=== PATIENT | female | born 2000 | race Caucasian/White ===

== ENCOUNTER 2020-05-30 07:58 | Observation (INO) ==
--- NOTE | 2020-05-09 15:34 | PAT Medication Instructions ---
Medication Instructions Date of Service May 09, 2020 Home Medications etonogestrel [Nexplanon] 68 mg SUBDERMAL CONT Lactobacillus acidophilus [Florajen] 460 mg PO QAM diclofenac sodium 75 mg PO BID levothyroxine 75 mcg PO QAM Continue as directed etonogestrel [Nexplanon] 68 mg SUBDERMAL CONT ASK your surgeon for instructions diclofenac sodium 75 mg PO BID DO NOT take the morning of surgery Lactobacillus acidophilus [Florajen] 460 mg PO QAM Take morning of surgery With a small sip of water, OTHERWISE NOTHING TO EAT OR DRINK AFTER MIDNIGHT: levothyroxine 75 mcg PO QAM Other Notes If you have any questions please call us at [phone] or [phone] or [phone] or [phone]
--- NOTE | 2020-05-21 10:40 | PAT Medication Instructions ---
Medication Instructions Date of Service May 21, 2020 Home Medications etonogestrel [Nexplanon] 68 mg SUBDERMAL CONT Lactobacillus acidophilus [Florajen] 460 mg PO QAM diclofenac sodium 75 mg PO BID levothyroxine 75 mcg PO QAM Continue as directed etonogestrel [Nexplanon] 68 mg SUBDERMAL CONT ASK your surgeon for instructions diclofenac sodium 75 mg PO BID DO NOT take the morning of surgery Lactobacillus acidophilus [Florajen] 460 mg PO QAM Take morning of surgery With a small sip of water, OTHERWISE NOTHING TO EAT OR DRINK AFTER MIDNIGHT: levothyroxine 75 mcg PO QAM Other Notes If you have any questions please call us at [phone] or [phone] or [phone] or [phone]
--- NOTE | 2020-05-22 14:11 | Anesthesiology Consultation ---
Date of Service May 22, 2020 Assessment & Plan (1) Encounter for pre-operative examination: - Per assessment on 05/22: Travel screen negative. No known COVID-19 positive contacts or current COVID-19 related symptoms. Surgeon arranging preop COVID testing. Awaiting results. - Check test AM DOS Chart Review Chart Review: Acceptable Risk for Surgery and Patient seen in Pre Admission Testing Teaching & Discussion Pre-Anesthesia Teaching/Discussion Notes: Instructed NPO after midnight before surgery,except medications with 15 cc of water. Medication instructions provided according to the PAT guidelines. History Surgery Operation Date: 05/30/20 09:10 Proposed Procedures p Robotic Laparoscopic Right and/or Left Ovarian Cystectomy - Kate Garrido, Height/Weight Height: 5 ft 9 in Weight: 65.3 kg Allergies Allergy/AdvReac Type Severity Reaction Status Date / Time No Known Allergies Allergy Verified 05/22/20 12:50 Medications Home Medications Medication Instructions Recorded Confirmed Last Taken etonogestrel [Nexplanon] 68 mg SUBDERMAL CONT 05/11/19 05/22/20 Unknown Lactobacillus acidophilus 460 mg PO QAM 04/28/20 05/22/20 Unknown [Florajen] diclofenac sodium 75 mg PO BID 04/28/20 05/22/20 Unknown levothyroxine 75 mcg PO QAM 04/28/20 05/22/20 Unknown Past Medical History Medical History Cold intolerance Euthyroid, hypothyroidism unlikely but conceivable per [facility] endocrinology > rec'd trial of levothyroxine to see if improvement in cold intolerance complaint > pt states she has seen an improvement in symptoms so she has been continuing levothyroxine Dermoid cyst Hypothyroidism IBS (irritable bowel syndrome) mild Ruptured ovarian cyst Exercise / Class Metabolic Activity II 4-5 Yardwork/Stairs/Walk up hill Past Family History Family History Father Diabetes Colorectal cancer Denies family history of Ovarian cancer Prostate cancer Myocardial infarction Breast cancer Past Surgical History Surgical History History of tooth extraction Past Anesthesia History No Hx of Anesthesia Complications and No Family Hx of Anesthesia Complications History of PONV No Hx of PONV and Hx of Motion Sickness (car rides) Social History Smoking Status: Never smoker Do You Dip or Chew Tobacco: No Hx Alcohol Use: Yes Alcohol type: beer, wine and hard liquor alcohol intake frequency: holidays/special occasions only Hx Substance Use: No substance use type: does not use Review of Systems Patient denies chest pain, shortness of breath, dyspnea on exertion, fever, chills, cough, wheezing, palpitations. Physical Exam Vital Signs VITALS BP 121/79 P 94 TEMP 98.8 SP02 97%RA RESP 16 PHYSICAL Full neck and c-spine range of motion. Full TMJ range of motion. TMD 3 finger breaths Mallampati Score 1 Dentition: missing molars Lungs: clear throughout to auscultation Cardiac: regular rate and rhythm, no murmurs noted Spine: normal Extremities: no edema Testing Laboratory Results 05/22/20 14:35 Urine Color Yellow 05/22/20 14:35 Urine Appearance Clear (Clear) 05/22/20 14:35 Urine pH 5.5 (4.5-7.5) 05/22/20 14:35 Ur Specific [place] 1.023 (1.000-1.030) 05/22/20 14:35 Urine Protein Negative (Negative) 05/22/20 14:35 Urine Glucose (UA) Negative (Negative) 05/22/20 14:35 Urine Ketones Trace (Negative) H 05/22/20 14:35 Urine Nitrite Negative (Negative) 05/22/20 14:35 Ur Leukocyte Esterase Negative (Negative) 05/22/20 14:35 02/13/20 TSH 1.160 (wnl) FREE T4 0.80 (wnl) 12/04/19 SODIUM 139 POTASSIUM 4.1 CHLORIDE 103 CO2 23 BUN 17 CREATININE 0.78 GLUCOSE 92
[2020-05-22 15:07] LABS: Basophils # (auto) 0.03 K/uL (0-0.2); Basophils % (auto) 0.4 %; Eosinophils # (auto) 0.07 K/uL (0-0.5); Hematocrit (blood only) 38.4 % (37-47); Hemoglobin 13.3 g/dL (12.0-16.0); Immature Granulocytes # (auto) 0.01 K/uL (0.00-0.02); Immature Granulocytes % (auto) 0.1 %; Lymphocytes # (auto) 2.46 K/uL (1.2-3.4); Lymphocytes % (auto) 34.9 %; Mean Corpuscular Hemoglobin 30.8 pg (25-34); Mean Corpuscular Hgb Conc 34.6 g/dL (32-36); Mean Corpuscular Volume 88.9 fL (80-100); Mean Platelet Volume 10.5 fL (7.4-10.4); Monocytes # (auto) 0.49 K/uL (0.11-0.59); Neutrophils # (auto) 3.98 K/uL (1.4-6.5); Neutrophils % (auto) 56.6 %; Platelet Count 276 K/uL (130-400); RDW Standard Deviation 39.1 fL (36.4-46.3); Red Blood Count 4.32 M/uL (4.2-5.4); White Blood Count 7.04 K/uL (4.8-10.8)
[2020-05-22 15:15] LABS: Appearance Urine Clear (Clear); Bilirubin Urine Negative (Negative); Blood Urine Negative (Negative); Color Urine Yellow; Glucose Urine UA Negative (Negative); Ketones Urine Trace (Negative); Leukocyte Esterase Urine Negative (Negative); Nitrite Urine Negative (Negative); Protein Urine Negative (Negative); Specific Gravity Urine 1.023 (1.000-1.030); Urobilinogen Urine Negative (Negative); pH Urine 5.5 (4.5-7.5)
[2020-05-22 15:49] LABS: Pregnancy Test, Serum Negative (Negative)
[2020-05-26 14:13] LABS: AFP Tumor Marker Serum 1.2 ng/mL
[~2020-05-30 07:58] MED LIST: LR 15ML/HR IV SCH
[2020-05-30] MEDS ORDERED: ROCURONIUM BROMIDE 10 MG/ML 5 ML VIAL IV ONE (08:31)
[2020-05-30] MEDS ORDERED: PROPOFOL IV EMULSION 10 MG/ML 20 ML VIAL IV ONE (08:31)
[2020-05-30] MEDS ORDERED: fentaNYL citrate 100 MCG/2 ML VIAL ONE ×2 (08:31→10:23)
[2020-05-30] MEDS ORDERED: LIDOCAINE HCL 2% 2 ML VIAL/AMP(20MG/ML) INFIL ONE (08:31)
[2020-05-30] MEDS ORDERED: ONDANSETRON INJ 2 MG/ML 2 ML VIAL ONE (08:31)
[2020-05-30] MEDS ORDERED: MIDAZOLAM HCL 1 MG/ML 2ML VIAL ONE (08:31)
--- NOTE | 2020-05-30 09:00 | History & Physical Bridge Note ---
Date of Service May 30, 2020 History & Physical Bridge Note I have examined the patient, reviewed the History & Physical and in the interval since the performance of the History & Physical I have noted the following changes of clinical significance: no changes noted
[2020-05-30] MEDS ORDERED: BUPIVACAINE 0.5 % 5 MG/1 ML MPF 30ML VIAL ONE (09:17)
[2020-05-30] MEDS ORDERED: METOCLOPRAMIDE HCL INJ 5 MG/ML 2 ML VIAL IV PRN (09:25)
[2020-05-30] MEDS ORDERED: DEXAMETHASONE SOD INJ 4 MG/ML VIAL IV PRN (09:25)
[2020-05-30] MEDS ORDERED: HYDROmorphone INJ 2 MG/ML SYR/VIAL IV PRN (09:25)
[2020-05-30] MEDS ORDERED: ONDANSETRON INJ 2 MG/ML 2 ML VIAL IV PRN ×2 (09:25→11:31)
[2020-05-30] MEDS ORDERED: ATROPINE SULFATE 0.1 MG/ML 10ML SYR IV PRN (09:25)
[2020-05-30] MEDS ORDERED: ePHEDrine sulfate 50 MG/ML AMP IV PRN (09:25)
[2020-05-30] MEDS ORDERED: PROMETHAZINE HCL 12.5 MG in SODIUM CHLORIDE 0.9% 50 ML IV PRN (09:25)
[2020-05-30] MEDS ORDERED: DEXAMETHASONE SOD INJ 4 MG/ML VIAL ONE (09:52)
[2020-05-30] MEDS ORDERED: GLYCOPYRROLATE 0.2 MG/ML VIAL ONE (10:50)
[2020-05-30] MEDS ORDERED: NEOSTIGMINE METHYLSULFATE 5 MG/5 ML SYR ONE (10:50)
--- NOTE | 2020-05-30 11:25 | Operative Report ---
[facility] Post Operative Report Pre & Post Diagnosis Operation Date: 05/30/20 09:20 Pre-Op Diagnosis: Complex Ovarian Cyst Post-Op Diagnosis: Complex Ovarian Cyst - Dermoid I identified the patient and participated in the time-out.: Yes Procedure Operation Date: 05/30/20 09:20 Actual Procedures p Robotic Left Laparoscopic Ovarian Cystectomy, Pelvic Irrigation(Left) - Kate Garrido DO Surgeon Kate Garrido DO Brain Wave Technician Marian Mcallister MD Estimated Blood Loss 10 Findings Consistent with Post-Op Diagnosis Enlarged left ovary, dermoid cyst with multiple tissue types - fat, fluid, hair. Specimens left ovarian cyst Drains ballesteros, clear yellow, removed at end of case Anesthesia Type General Complications none Disposition Accompanied Patient To Recovery: No Disposition: Recovery Room Indications 19yo G0 with left ovarian dermoid causing pain. Description of Procedure The patient was seen in the preoperative holding area, all risks benefits and alternatives to surgery reviewed. She elected to proceed with the case. She had previously signed informed consent under no no duress in the office. All questions were answered. Left side was marked. Patient was taken to the operating room, general anesthesia was administered. She was prepared and draped in the usual sterile fashion in the dorsal lithotomy position with feet in yellowfin stirrups. Timeout was confirmed. A Ballesteros catheter was placed in the bladder. A weighted speculum was placed in the vagina, the cervix was visualized and its anterior lip was grasped with a single-tooth tenaculum. An acorn uterine manipulator was inserted through the cervix. Gloves were changed and attention was then turned to the abdomen. The supraumbilical incision was made with a scalpel, and using open Hair technique the fascia was incised and the peritoneal cavity was entered. The umbilical trocar was placed, and CO2 gas was used to insufflate the abdomen after confirmation of intraperitoneal entry. Bilateral trochars were placed under direct visualization. The robot was docked. An incision was made with monopolar alec into the ovarian cyst, with the inner cyst wall visualized. This was gently bluntly dissected from the inner wall of the ovary. During this process, the cyst was punctured and there was spillage of cyst contents into the pelvis. This was immediately irrigated. The cyst wall was carefully dissected from the ovary bluntly. The ovarian bed was evaluated and found to be hemostatic. The pelvis was irrigated multiple times. The robot was undocked. The specimen was placed in an Endo Catch bag and removed through the umbilical trocar incision. The pelvis and abdomen were then irrigated again, multiple times, in an effort to clear the pelvis of all remaining cyst material. Excellent hemostasis was observed. The trochars were removed, and the supraumbilical incision fascia was reapproximated using 0 Vicryl in a running stitch. All skin incisions were then reapproximated with 4-0 Vicryl in a running subcuticular stitch. 0.25% Marcaine was used for anesthetic at the trocar sites. The abdomen was cleaned and Dermabond was applied. All instruments were removed from the vagina, as well as the Ballesteros catheter. Excellent hemostasis was observed. The patient tolerated the procedure well, and was taken to recovery area in stable and good condition. I attest to the content of the Intraoperative Record and any orders documented therein. Any exceptions are noted below.
[2020-05-30] MEDS ORDERED: KETOROLAC 30 MG/ML VIAL ONE (11:27)
[2020-05-30] MEDS ORDERED: oxyCODONE/ACETAMINOPHEN 5mg/325mg TAB PO PRN (11:31)
[2020-05-30] MEDS ORDERED: NALOXONE HCL 0.4 MG/1 ML VIAL/CARP ONE (11:36)
--- NOTE | 2020-05-30 12:55 | XRay Report ---
XR chest 1V portable HISTORY: productive cough, hypoxia COMPARISON: None. FINDINGS: No pneumothorax or no pleural effusions. The heart is normal in size. There is mild interst itial thickening and hazy bilateral airspace opacities. Small amount of pneumoperitoneum is noted. IMPRESSION: 1. Mild interstitial thickening and hazy bilateral airspace opacities most pronounced within the left lung base. This is nonspecific and could be due to an atypical/viral pneumonitis or developing pulmo nary edema. 2. Small amount of pneumoperitoneum is likely due to the recent postoperative change. ACT 112: Negative or not required by law. Electronically signed by: Bobo Abarca M.D. 05/30/2020 12:54 PM
[2020-05-30] MEDS: fentaNYL citrate 100 MCG/2 ML VIAL IV PRN ×2 (13:42→14:08)
--- NOTE | 2020-05-30 14:27 | Anesthesiology Progress Note ---
Date of Service May 30, 2020 Anesthesia Post Procedure Vital Signs Vital Signs: Temp Pulse Pulse Resp BP BP Pulse Ox 05/30/20 14:15 87 16 118/78 97 05/30/20 14:00 85 16 105/61 95 05/30/20 13:50 37.2 C 80 18 99/62 L 98 05/30/20 13:40 88 23 111/62 95 05/30/20 13:30 92 H 19 97/57 L 95 05/30/20 13:20 77 17 102/64 95 05/30/20 13:10 76 18 111/65 95 05/30/20 13:00 76 18 105/62 96 05/30/20 12:50 77 19 103/59 L 91 05/30/20 12:40 84 22 115/67 99 05/30/20 12:30 97 H 21 88/56 L 90 05/30/20 12:20 113 H 20 94/50 L 91 05/30/20 12:10 102 H 21 99/68 L 89 L 05/30/20 12:00 76 21 119/78 96 05/30/20 11:50 74 16 116/69 94 05/30/20 11:40 79 17 106/71 93 05/30/20 11:30 36.4 C L 89 18 102/61 39 L 05/30/20 08:26 36.8 C 76 18 127/82 98 Pain Intensity Abdomen: Pain Intensity: 3 Transfer of Care Handoff Completed per policy Notes Mental Status: participated in evaluation Patient Amnestic to Procedure: Yes Nausea / Vomiting: adequately controlled Pain: adequately controlled Airway Patency, RR, SpO2: see Notes below BP & HR: stable & adequate Hydration State: stable & adequate Anesthetic Complications: see Notes below Notes: Pt had airway obstruction and arterial oxygen desaturation upon arrival to PACU. Was treated with jaw thrust and nasal trumpet and improved. Pt subsequently had SaO2 low 90's despite high-flow O2 mask. Also developed cough with pink sputum. NPPE (negative-pressure pulmonary edema) suspected. CXR shows mild congestive change, consistent with NPPE. Discussed with Dr. Garrido and [facility] hospitalist. Pt to be admitted to hospitalist service for supplemental O2 and other treatment as needed. At pt's request, I called her father and her boyfriend to inform them of this circumstance.
--- NOTE | 2020-05-30 15:24 | History & Physical Report ---
Date of Service May 30, 2020 Assessment & Plan (1) Pulmonary edema: Sandra is a 19 year old female with a history of Hypothyroidism, Irritable Bowel Syndrome, and a Complex Left Ovarian Cyst who underwent a Robotically Assisted Laparoscopic Left Ovarian Cystectomy with Dr. Garrido earlier today under general anesthesia. Following extubation, patient developed airway obstruction/possibly laryngeal spasm and low oxygen saturations on arrival to PACU. This was remedied initially with jaw thrust and nasal trumpet placement and her O2 saturations improved. Patient was also subsequently placed on high flow O2 mask, and despite this -- the patient had an O2 saturation in the low 9 0's. Patient developed cough with frothy, pink sputum as well. Her presentation is consistent with NPPE (negative-pressure pulmonary edema). CXR obtained and showed mild congestive change, consistent with pulmonary edema. At this point the patient is not quite fully over the effects of anesthesia but she is interactive, her O2 saturations are in the mid to upper 90's on O2 at 3 L/min via nasal cannula. Recommend the following: -- Admit to Med-Surg with telemetry on observation status. -- Continue supplemental O2 to maintain saturations > 94%. -- Wean off of O2 as tolerated. -- No need for diuretic at the moment as she is clinically improving. (2) History of laparoscopy: -- Post robotically assisted laparoscopic ovarian cystectomy, POD#0. -- As per Dr. Garrido. History of Present Illness Chief Complaint: -- Negative Pressure Pulmonary Edema. -- Hypoxia. -- s/p Laparoscopic Ovarian Cystectomy. Primary Care Provider: [facility] Sandra is a 19 year old female with a history of Hypothyroidism, Irritable Bowel Syndrome, and a Complex Left Ovarian Cyst who underwent a Robotically Assisted Laparoscopic Left Ovarian Cystectomy with Dr. Garrido earlier today. The surgery was performed under general anesthesia. Patient tolerated the surgery well, but following extubation patient had airway obstruction/possibly laryngeal spasm and low oxygen saturations on arrival to PACU. This was remedied initially with jaw thrust and nasal trumpet placement and her O2 saturations improved. Patient subsequently placed on high flow O2 mask - and despite the patient had an O2 saturation in the low 90's. Patient also developed cough with frothy, pink sputum. Presentation consistent with NPPE (negative-pressure pulmonary edema). CXR obtained and showed mild congestive change, consistent with negative pressure pulmonary edema. Discussed with Dr. Garrido and [facility] hospitalist. Patient is currently being seen in the PACU. She is awake and interactive. She denies any SOB, chest discomfort, chest pain or pleuritic chest pain at the present time. Patient is tearful because she doesn't have anyone here with her -- due to coronavirus visitation restrictions. Her father has been updated by telephone. Allergies Allergy/AdvReac Type Severity Reaction Status Date / Time No Known Allergies Allergy Verified 05/30/20 08:23 Home Medications Medication Instructions Recorded Confirmed Type etonogestrel [Nexplanon] 68 mg SUBDERMAL CONT 05/11/19 05/30/20 History Lactobacillus acidophilus 460 mg PO QAM 04/28/20 05/30/20 History [Florajen] diclofenac sodium 75 mg PO BID 04/28/20 05/30/20 History levothyroxine 75 mcg PO QAM 04/28/20 05/30/20 History hydrocodone-acetaminophen 1 tab PO Q6H PRN #10 tab 05/30/20 Rx Past Med/Surg History Medical History (Updated 05/30/20 @ 15:14 by Og Thomas PA-C) Cold intolerance Euthyroid, hypothyroidism unlikely but conceivable per [facility] [place] > rec'd trial of levothyroxine to see if improvement in cold intolerance complaint > pt states she has seen an improvement in symptoms so she has been continuing levothyroxine Dermoid cyst Hypothyroidism IBS (irritable bowel syndrome) mild Ruptured ovarian cyst Surgical History (Updated 05/30/20 @ 15:14 by Og Thomas PA-C) History of laparoscopy History of tooth extraction Family History Father Diabetes Colorectal cancer Denies family history of Ovarian cancer Prostate cancer Myocardial infarction Breast cancer Social History Smoking Status: Never smoker Second Hand Exposure: No; Do You Dip or Chew Tobacco: No; Tobacco Cessation Education Requested by Patient: No Hx Alcohol Use: Yes Alcohol type: beer, wine and hard liquor Hx Substance Use: No Preferred Language: Belarusian Communication Ability: Effective Model Home Sales Greeter Required: No Beliefs That Will Affect Care: None marital status: Single Current Living Situation: Alone Current Living Situation Comment: room mates at school current occupational status: student How many Children do You have: 0 Other Information That Helps Us Care for You: No Feels Safe at Home: Yes Safety Concerns: Feels Safe At This Time Childhood Exposure to Second-Hand Smoke: No caffeine: No Dental Care, Regularly: Yes Physical Activity Frequency: 3-4 Times per Week Seatbelt Use: always Sunscreen Use: Yes Assistive Devices: None Review of Systems Review of Systems: All systems reviewed & are unremarkable except as noted in Subjective Physical Exam Physical Exam: GENERAL: Patient is somnolent but interactive, in a semi-recumbent position in her bed. HEENT: Head is atraumatic, normocephalic. EOM's intact. Facies symmetric. No perioral cyanosis. NECK: No JVD. JVP is at the level of the clavicle sitting upright. Carotid upstrokes are + 2 bilaterally. CHEST/LUNGS: Crackles in bilateral lower lung [place], left side crackle are more pronounced than the right. CVS: S1 and S2 are regular without murmurs, gallops, or rubs. PMI is nondisplaced. No lifts, heaves, or thrills. No abdominal aortic or renal bruits. ABDOMINAL EXAM: Bowel sounds are present. EXTREMITIES: No clubbing or cyanosis. No edema. Intact posterior tibial and radial pulses bilaterally. NEUROLOGIC EXAM: Patient is somnolent but interactive and cooperative. Answers questions appropriately. Normal movement in all 4 extremities. Gait pattern was not assessed. Results & Data Results & Data ([facility]) Vital Signs (Past 12 Hours) Vital Signs Temp Pulse Pulse Resp BP BP Pulse Ox 05/30/20 14:30 81 14 111/65 95 05/30/20 14:15 87 16 118/78 97 05/30/20 14:00 85 16 105/61 95 05/30/20 13:50 37.2 C 80 18 99/62 L 98 05/30/20 13:40 88 23 111/62 95 05/30/20 13:30 92 H 19 97/57 L 95 05/30/20 13:20 77 17 102/64 95 05/30/20 13:10 76 18 111/65 95 05/30/20 13:00 76 18 105/62 96 05/30/20 12:50 77 19 103/59 L 91 05/30/20 12:40 84 22 115/67 99 05/30/20 12:30 97 H 21 88/56 L 90 05/30/20 12:20 113 H 20 94/50 L 91 05/30/20 12:10 102 H 21 99/68 L 89 L 05/30/20 12:00 76 21 119/78 96 05/30/20 11:50 74 16 116/69 94 05/30/20 11:40 79 17 106/71 93 05/30/20 11:30 36.4 C L 89 18 102/61 39 L 05/30/20 08:26 36.8 C 76 18 127/82 98 Laboratory Results Laboratory Results - last 24 hr 05/30/20 08:10 POC Ur Test NEG Diagnostic Findings CXR 05/30/20: 1. Mild interstitial thickening and hazy bilateral airspace opacities most pronounced within the left lung base. This is nonspecific and could be due to an atypical/viral pneumonitis or developing pulmonary edema. 2. Small amount of pneumoperitoneum is likely due to the recent postoperative change. Code Status & VTE Plan Code Status Full Code. VTE Prophylaxis Plan VTE Prophylaxis will be ordered: Yes PG Care Time/CCT Total # of Minutes Spent Total Time Spent with Patient: Total time spent is greater than 50% in coordination of care (as documented) at patient's floor/unit and/or counseling patient:35 Coding Level of Care Code 06823 OBS Care - Level 3 Diagnoses Pulmonary edema J81.1 History of laparoscopy Z98.890 Time Spent (min) 60
[2020-05-30] MEDS: oxyCODONE/ACETAMINOPHEN 5mg/325mg TAB PO PRN (20:05)
--- NOTE | 2020-05-30 23:02 | Gynecologic Progress Note ---
Date of Service May 30, 2020 Assessment & Plan Admission and Anticipated Discharge Date Admission Date: May 30, 2020 Subjective Patient was admitted to hospitalist service from PACU upon diagnosis of n egative-pressure pulmonary edema, thought to be brought upon by anesthesia. She had decreasing O2 saturations in PACU, pink frothy cough, and pulmonary edema on chest x-ray. She was found to have improvement in O2 sat with nasal cannula oxygen. I visited her this evening to check in. States pain is controlled. She has not yet urinated, possibly from both intravascular depletion secondary to pulmonary edema, also potentially compounded by postoperative urinary retention. Patient is drinking PO fluids. Plan is to perform straight cath if unable to urinate with bladder scan at or > 400ml. Questions answered. Reviewed procedure and findings from today's surgery. Will round in AM. Results & Data ([facility]) Vital Signs (Past 12 Hours) Vital Signs Temp Pulse Pulse Resp BP Pulse Ox 05/30/20 18:55 37.0 C 91 H 18 103/57 L 97 05/30/20 18:05 37.0 C 105 H 16 106/65 95 05/30/20 17:10 36.5 C 98 H 16 105/58 L 96 05/30/20 16:45 36.9 C 94 H 16 97/60 L 96 05/30/20 16:00 36.9 C 96 H 84 16 106/62 97 05/30/20 15:45 106 H 18 105/53 L 97 05/30/20 15:30 113 H 16 103/49 L 97 05/30/20 15:15 107 H 12 104/50 L 97 05/30/20 15:00 37.7 C H 99 H 19 101/51 L 97 05/30/20 14:45 82 13 109/60 96 05/30/20 14:30 81 14 111/65 95 05/30/20 14:15 87 16 118/78 97 05/30/20 14:00 85 16 105/61 95 05/30/20 13:50 37.2 C 80 18 99/62 L 98 05/30/20 13:40 88 23 111/62 95 05/30/20 13:30 92 H 19 97/57 L 95 05/30/20 13:20 77 17 102/64 95 05/30/20 13:10 76 18 111/65 95 05/30/20 13:00 76 18 105/62 96 05/30/20 12:50 77 19 103/59 L 91 05/30/20 12:40 84 22 115/67 99 05/30/20 12:30 97 H 21 88/56 L 90 05/30/20 12:20 113 H 20 94/50 L 91 05/30/20 12:10 102 H 21 99/68 L 89 L 05/30/20 12:00 76 21 119/78 96 05/30/20 11:50 74 16 116/69 94 05/30/20 11:40 79 17 106/71 93 05/30/20 11:30 36.4 C L 89 18 102/61 39 L
[2020-05-30 23:07] LABS: Hematocrit (blood only) 35.6 % (37-47); Hemoglobin 12.1 g/dL (12.0-16.0); Immature Granulocytes # (auto) 0.02 K/uL (0.00-0.02); Immature Granulocytes % (auto) 0.2 %; Lymphocytes # (auto) 0.79 K/uL (1.2-3.4); Lymphocytes % (auto) 6.2 %; Mean Corpuscular Hemoglobin 30.4 pg (25-34); Mean Corpuscular Volume 89.4 fL (80-100); Mean Platelet Volume 9.9 fL (7.4-10.4); Monocytes # (auto) 0.83 K/uL (0.11-0.59); Monocytes % (auto) 6.5 %; Neutrophils # (auto) 11.15 K/uL (1.4-6.5); Neutrophils % (auto) 87.1 %; Platelet Count 253 K/uL (130-400); RDW Coefficient of Variation 12.2 % (11.5-14.5); RDW Standard Deviation 39.5 fL (36.4-46.3); Red Blood Count 3.98 M/uL (4.2-5.4); White Blood Count 12.79 K/uL (4.8-10.8)
[2020-05-30 23:24] LABS: BUN Creatinine Ratio 16.8 (10-20); Calcium 8.7 mg/dl (8.5-10.1); Creatinine Clr Calc Pharmacy 100.3 ml/min; Est GFR (African American) 104.5; Est GFR (Non-African American) 90.2; Potassium 4.4 mmol/L (3.5-5.1)
[2020-05-31 00:44] LABS: Appearance Urine Clear (Clear); Bilirubin Urine Negative (Negative); Blood Urine Negative (Negative); Color Urine Dark Yellow; Glucose Urine UA Negative (Negative); Ketones Urine Negative (Negative); Leukocyte Esterase Urine Negative (Negative); Nitrite Urine Negative (Negative); Protein Urine Negative (Negative); Urobilinogen Urine Negative (Negative)
--- NOTE | 2020-05-31 01:38 | Communication Note ---
Date of Service: May 31, 2020 Patient requested to speak with MD overnight - she expressed frustration regarding a lack of communication and timeliness of her care. As an example, she had a CBC drawn this afternoon and no one ever informed her on why additional blood work was being ordered. I explained it was likely to assess for infection and or anemia (as both can occur in the post-operative period). She was also confused about why she had to be straight cathed - I counseled her on the common phenomenon of post-anesthesia urinary retention and the associated risk of UTI. Fortunately, she reported significant improvement in her suprapubic pain after being straight cathed. Finally, Sandra requested her 4am vital check to be canceled - as she was exhausted and wanted uninterrupted rest. On most recent check she was hemodynamically stable - I instructed nursing to cancel her 4am vitals. All questions seemingly answered to her satisfaction.
[2020-05-31] MEDS ORDERED: LEVOTHYROXINE SODIUM 75 MCG TABLET PO SCH (06:30)
[2020-05-31] MEDS: oxyCODONE/ACETAMINOPHEN 5mg/325mg TAB PO PRN (08:03)
--- NOTE | 2020-05-31 08:29 | Gynecologic Progress Note ---
Date of Service May 31, 2020 Assessment & Plan (1) Pulmonary edema: POD#1 doing well. OK for DC from medical assistant ob gyn perspective, however, would defer to hospitalist team for discharge decision. Rx for norco has been sent to pharmacy on file for postop pain control. She is aware of postop discharge instructions. Followup in office in 2 weeks as scheduled. (2) History of laparoscopy: Admission and Anticipated Discharge Date Admission Date: May 30, 2020 Subjective POD#1 s/p laparoscopic left ovarian cystectomy with [place] assist. Was admitted overnight after negative-pressure pulmonary edema diagnosed in PACU. Required O2 by nasal cannula yesterday, and has been on room air overnight. Doing well at this point. Pain is controlled. She is eating/drinking. Passing gas. Required straight cath overnight, as developed urinary retention and was unable to urinate. Has not yet urinated this morning, but is hydrating. Ambulating ok. Physical Exam Physical Exam: gen: AAOx3 NAD Resp: nonlabored breathing on room air, O2 sat 96 Abd: soft, NTTP. Incisions CDI. : no bleeding Ext: no edema Results & Data ([facility]) Vital Signs (Past 12 Hours) Vital Signs Temp Pulse Pulse Resp BP Pulse Ox 05/31/20 07:21 36.4 C L 92 H 18 112/73 96 05/31/20 06:01 37.0 C 73 16 97/55 L 95 05/31/20 05:22 70 05/30/20 23:00 36.7 C 83 18 113/70 99
--- NOTE | 2020-05-31 09:45 | Discharge Summary ---
Date of Service May 31, 2020 Admission HPI Per Admitting Provider Sandra is a 19 year old female with a history of Hypothyroidism, Irritable Bowel Syndrome, and a Complex Left Ovarian Cyst who underwent a Robotically Assisted Laparoscopic Left Ovarian Cystectomy with Dr. Garrido earlier today. The surgery was performed under general anesthesia. Patient tolerated the surgery well, but following extubation patient had airway obstruction/possibly laryngeal spasm and low oxygen saturations on arrival to PACU. This was remedied initially with jaw thrust and nasal trumpet placement and her O2 saturations improved. Patient subsequently placed on high flow O2 mask - and despite the patient had an O2 saturation in the low 90's. Patient also developed cough with frothy, pink sputum. Presentation consistent with NPPE (negative-pressure pulmonary edema). CXR obtained and showed mild congestive change, consistent with negative pressure pulmonary edema. Discussed with Dr. Garrido and [facility] hospitalist. Patient is currently being seen in the PACU. She is awake and interactive. She denies any SOB, chest discomfort, chest pain or pleuritic chest pain at the present time. Patient is tearful because she doesn't have anyone here with her -- due to coronavirus visitation restrictions. Her father has been updated by telephone. Admission Exam Per Admitting Provider GENERAL: Patient is somnolent but interactive, in a semi-recumbent position in her bed. HEENT: Head is atraumatic, normocephalic. EOM's intact. Facies symmetric. No perioral cyanosis. NECK: No JVD. JVP is at the level of the clavicle sitting upright. Carotid upstrokes are + 2 bilaterally. CHEST/LUNGS: Crackles in bilateral lower lung upton, left side crackle are more pronounced than the right. CVS: S1 and S2 are regular without murmurs, gallops, or rubs. PMI is nondisplaced. No lifts, heaves, or thrills. No abdominal aortic or renal bruits. ABDOMINAL EXAM: Bowel sounds are present. EXTREMITIES: No clubbing or cyanosis. No edema. Intact posterior tibial and radial pulses bilaterally. NEUROLOGIC EXAM: Patient is somnolent but interactive and cooperative. Answers questions appropriately. Normal movement in all 4 extremities. Gait pattern was not assessed. Principal Diagnosis Negative pressure pulmonary edema secondary to anesthesia for robotic assisted laparoscopic left ovarian cystectomy complicated by history of hypothyroidism and irritable bowel syndrome Discharge Exam General: No acute distress HEENT: Normocephalic atraumatic Neck: No significant lymphadenopathy, trachea midline, normal to visual inspection Cardiac: Regular rate and rhythm, normal S1, normal S2, I did not appreciated any significant murmurs rubs or gallops, I did not appreciate any significant pedal edema, No calf tenderness, capillary refill is less than 3 seconds Respiratory: Clear to auscultation bilaterally with symmetrical chest rise, I did not appreciate any significant wheezes, rales, rhonchi, no increased work of breathing GI: Normal bowel sounds, soft, nontender in all 4 quadrants, nondistended MSK: No sensory or motor changes, moves all extremities without issue, extremities are warm and well-perfused Skin: Whitten, clean, dry, intact. Neuro: Alert and oriented x4 Psych: Calm, cooperative, logical thought process Discharge Data Allergies Allergy/AdvReac Type Severity Reaction Status Date / Time No Known Allergies Allergy Verified 05/30/20 08:23 Procedures Performed Operation Date: 05/30/20 09:20 Actual Procedures p Robotic Left Laparoscopic Ovarian Cystectomy, Pelvic Irrigation(Left) - Kate Garrido DO Hospital Course (1) Pulmonary edema: #Pulmonary edema 19-year-old female with past medical history of hypothyroidism, IBS currently postoperative day 1 status post robotic assisted left ovarian cystectomy who had difficulty in the immediate postoperative period experiencing airway obstruction and oxygen desaturation. This was treated with a jaw thrust maneuver and nasal trumpet and improved. She had associated pink sputum production and was subsequently diagnosed with negative pressure pulmonary edema with chest x-ray evidence of mild congestive changes. She was admitted to to [facility] for further evaluation and monitoring. She continued to improve throughout the evening of 05/30 and was weaned from oxygen successfully. On the day of discharge she was tolerating room air, without physical exam signs of rales or pulmonary edema or respiratory distress, and was able to tolerate walking arounfd theroom with a pulse ox of 96 with exertion and 97 at rest. Counseled the patient to be alert for concerning signs or symptoms including but not limited to fevers unresponsive to NSAIDs, shaking chills, persistent nausea, vomiting, or diarrhea, significant unrelenting pain, severe headache, chest pain, chest pressure, worsening or lack of improvement of the symptoms for which they presented. Should the patient experience any of these they are to contact our office for further instruction, return for follow-up, or proceed directly to the emergency department for further evaluation and management. #Postop day 1 status post robotic assisted laparoscopic left ovarian cystectomy Routine postoperative care per gynecology #Urinary retention Patient experiencing urinary retention secondary to general anesthesia. Requiring as needed straight cath for voiding. On the day of discharge the patient was able to void on her own. Advised the patient should she experience further urinary retention to return for further evaluation management #Hypothyroidism Continue levothyroxine FENa:Regular Code Status:Full DVT PPX:Ambulation PT/OT:not indicated Dispo:Home Stanley Fernandes MD PGY 2, FCM This chart was completed utilizing [employer] voice recognition software. Grammatical errors, random word insertions, pronoun errors, and in complete sentences are an occasional consequence of the system. Any questions or concerns about the content, text, or information contained within the body of this dictation should be addressed directly to the physician for clarification. (2) History of laparoscopy: (3) Urinary retention: (4) Hypothyroidism: Total Time Total Time Spent Total Time Spent (In Minutes): Less than 30 Discharge Plan Discharge Items Reason For Visit: Complex Ovarian Cyst Discharge Diagnosis: removal of left ovarian dermoid cyst Activity: Resume your previous activity Non-emergency contact: Primary Care Provider and Manager [employer] Call non-emergency contact if: your symptoms worsen, your pain is worsening and your temperature is above 101 Follow-up/Referrals: [facility] [Primary Care Provider] - Diet: Regular Addtl Attending Provider Instructions: ACTIVITY RECOMMENDATIONS: * Rest the first 2-3 days. You should be back to your normal activity levels by day 3. * No heavy lifting for 2 weeks. * No intercourse, tampons or douching for 1-2 weeks. * You may shower the next day. * Do not drive anytime that you are taking narcotic pain medicines. RETURN TO SCHOOL/WORK: * May return to school or work after 2-3 days. DIET: Nausea may occur in the immediate post-operative period. If so, take clear liquids such as tea, bouillon, apple juice until all nausea has subsided, then resume usual diet. MEDICATIONS: Resume previous medications unless instructed otherwise by your surgeon. Ibuprofen 200mg 2-3 tablets every 4-6 hours as needed -- OR -- Aleve 2 tablets every 8-12 hours as needed for post-operative discomfort Medications are over the counter. Tylenol may be used if above medications are contraindicated or not preferred. Medication should be taken with food or milk. Do not take on an empty stomach. SPECIAL CARE INSTRUCTIONS: * Check temperature twice daily for one week. report any elevation over 101 degrees. * You may experience some vagina spotting and/or bleeding. This is normal for 1-2 weeks and should not be heavier than a normal period. If it is unusual in amount, call your physician. * Post-operative discomfort may consist of a sore throat, a "bloated" feeling and pain in the shoulders. these are normal symptoms, which usually only last for 2-3 days. * Remove band-aids tomorrow and shower. There is no need to replace band-aids unless there is drainage or discomfort. FOLLOW UP VISIT: Call your doctor's office for a post-operative 2 week visit if not already scheduled. Addtl Newspaper Photo Editor Provider Instructions: Care instructions: You were admitted to [facility] for treatment of negative pressure pulmonary edema (fluid in your lungs). We provided you with oxygen and supportive care and he subsequently improved. During your admission you also had urinary retention, this was treated with as needed straight catheterization. On the day of discharge you are able to void on your own. Inability to pee is quite common side effects after anesthesia anesthesia should you find yourself being unable to void at home and having suprapubic pain you should return for follow-up and additional treatment. Otherwise instructions as above A discharge summary will be sent to your primary care physician to ensure continuity of care. Please bring this discharge summary with you to your next office appointment so that your provider can review it at that time. Follow-up appointments: - Keep all your follow-up appointments as already scheduled. If you cannot make an appointment, notify your provider. - Please call to request a follow-up appointment with your primary care physician within one week of discharge. Please let us know if you are unable to obtain an appointment Medications: - Your medication list has been reviewed and reconciled upon discharge to ensure accuracy and continuity of care. - You are provided with a list of all your current medications at this time. Please review this list closely and make note of any changes. - Please take all of your medications exactly as prescribed. - Tell your primary care provider if you cannot afford your medications. - Call your primary care provider if you are having any side effects or any other problems. - Call your primary care provider before taking any over the counter medications or supplements, including herbals and vitamins, because some of these may interact with your current medications and/or make your symptoms worse. Symptoms: Please call your primary care provider for symptoms including, but not limited to: fevers (temperatures greater than 100.4), chills, intractable nausea or vomiting, diarrhea, rash, shortness of breath, bleeding, pain, or if you experience any worsening of the symptoms that brought you to the hospital. For EMERGENCY and VERY SERIOUS health-related issues, such as chest pain, shortness of breath, or sudden onset of the symptoms that brought you to the hospital, you may need to call 911 or go directly to the Emergency Room It has been our privilege to take care of you during your hospital stay. And Above All Else Feel Better! Best Wishes, Stanley Fernandes MD PGY2 Resident, Family & Community Medicine [facility] - [address], [address] MC: [place] [address] Pending Studies at Discharge: Yes Studies:: pathology Stand-Alone Forms: My [facility] Medications and DC Order Prescriptions: New hydrocodone-acetaminophen 5-325 mg tablet 1 tab PO Q6H PRN (Reason: pain) Qty: 10 RF: 0 Continued Nexplanon 68 mg Implant 68 mg SUBDERMAL CONT RF: 0 diclofenac sodium 75 mg Tablet,Delayed Release (Dr/Ec) 75 mg PO BID RF: 0 levothyroxine 75 mcg tablet 75 mcg PO QAM RF: 0 Florajen Acidophilus 460 mg (20 billion cell) capsule 460 mg PO QAM RF: 0 Admission Data Admit Date/Time: 05/30/20 14:12 Attending Provider: Gunnar Madera Admit Provider: Edinson Piper Primary Care Provider: [facility] Other Providers: Edinson Piper Other Interventions: Discharge Summary Assessment (RN) Last Done: 05/31/20 10:18 Supervising Physician Co-Signing Physician Notes I personally examined the patient and verified all stoner points of history and exam, discussed case, and agree with decision making with Dr Fernandes. Feeling better breathing better. Would like to go home. Vitals noted, in general she is awake and alert pleasant no distress. HEENT normocephalic atraumatic mucous membranes moist. Breathing unlabored no accessory muscle use no distress good effort, nursing noted ambulatory pulse ox without any notable desaturations. Skin shows no rashes no pallor or icterus. Negative pressure pulmonary edemaimproved rapidly with essentially nothing but supportive care. Stable for home. Otherwise as above. Resident Activity Tracking Resident Involvement: Resident Care Provided Care Provided: Adult Hospital Medicine
--- NOTE | 2020-05-31 11:17 | Anesthesiology Progress Note ---
Date of Service May 31, 2020 Anesthesia Post Procedure Vital Signs Vital Signs: Temp Pulse Pulse Pulse Resp BP Pulse Ox 05/31/20 10:18 36.4 C L 92 H 18 112/73 96 05/31/20 07:21 36.4 C L 92 H 18 112/73 96 05/31/20 06:01 37.0 C 73 16 97/55 L 95 05/31/20 05:22 70 05/30/20 23:00 36.7 C 83 18 113/70 99 05/30/20 18:55 37.0 C 91 H 18 103/57 L 97 05/30/20 18:05 37.0 C 105 H 16 106/65 95 05/30/20 17:10 36.5 C 98 H 16 105/58 L 96 05/30/20 16:45 36.9 C 94 H 16 97/60 L 96 05/30/20 16:00 36.9 C 96 H 84 16 106/62 97 05/30/20 15:45 106 H 18 105/53 L 97 05/30/20 15:30 113 H 16 103/49 L 97 05/30/20 15:15 107 H 12 104/50 L 97 05/30/20 15:00 37.7 C H 99 H 19 101/51 L 97 05/30/20 14:45 82 13 109/60 96 05/30/20 14:30 81 14 111/65 95 05/30/20 14:15 87 16 118/78 97 05/30/20 14:00 85 16 105/61 95 05/30/20 13:50 37.2 C 80 18 99/62 L 98 05/30/20 13:40 88 23 111/62 95 05/30/20 13:30 92 H 19 97/57 L 95 05/30/20 13:20 77 17 102/64 95 05/30/20 13:10 76 18 111/65 95 05/30/20 13:00 76 18 105/62 96 05/30/20 12:50 77 19 103/59 L 91 05/30/20 12:40 84 22 115/67 99 05/30/20 12:30 97 H 21 88/56 L 90 05/30/20 12:20 113 H 20 94/50 L 91 05/30/20 12:10 102 H 21 99/68 L 89 L 05/30/20 12:00 76 21 119/78 96 05/30/20 11:50 74 16 116/69 94 05/30/20 11:40 79 17 106/71 93 05/30/20 11:30 36.4 C L 89 18 102/61 39 L Pain Intensity Abdomen: Pain Intensity: 3 Notes Mental Status: alert / awake / arousable Patient Amnestic to Procedure: Yes Nausea / Vomiting: adequately controlled Pain: adequately controlled Airway Patency, RR, SpO2: stable & adequate BP & HR: stable & adequate Hydration State: stable & adequate Anesthetic Complications: Pt Satisfied with anesthetic care Notes: Pt feeling well this AM. Off O2 with appropriate sats. Mild sore throat. We discussed strategies for remedy. All questions about case/postop answered. Pt satisfied.
--- NOTE | 2020-05-31 16:27 | Billing Data ---
Date of Service May 31, 2020 Coding Level of Care Code D/C Day Management <30 mins
== END 2020-05-31 11:52 | disposition home or self-care (01) ==
LOC: ASU 07:58 → INTOOBSV 14:12 → SUATTDRO 14:12 → 2N 14:12 → UNDODISIN 05-31 10:21